=== PATIENT | male | born 1950 | race Caucasian/White ===

== ENCOUNTER → 2018-09-30 | Outpatient (CLI) | payer MEDICARE ==
--- NOTE | 2018-09-30 15:10 | CT ---
EXAMINATION TYPE: CT sinus wo con DATE OF EXAM: 09/30/2018 COMPARISON: None HISTORY: Chronic sinusitis CT DLP: 588 mGycm. Automated Exposure Control for Dose Reduction was Utilized. TECHNIQUE: CT scan of the sinuses is performed without contrast, axial images are obtained, coronal r eformatted images are also reviewed. FINDINGS: The left maxillary sinus is nearly completely opacified, right maxillary sinus also shows e xtensive inflammatory change, abnormal soft tissue extends to the ostiomeatal complexes bilaterally, ethmoid air cells show large amount of opacification as do the sphenoid sinuses, inflammatory change also noted in the bilateral frontal sinuses. The orbits show symmetric appearance. There is a deviate d nasal septum to the left. IMPRESSION: Pansinusitis.
== END | disposition home or self-care (01) ==
LOC: RADCTMAIN 14:31
PROVIDERS: ATTEND Family Medicine
DX: J32.4 Chronic pansinusitis (principal)
CPT/HCPCS: 70486

== ENCOUNTER 2020-04-28 09:50 | Day surgery (SDC) | payer MEDICARE ==
[2020-04-27 08:34] VITALS: BMI 25.7
[~2020-04-28 09:50] MED LIST: LACTATED RINGERS 1,000 ML IV SCH
[2020-04-28] MEDS ORDERED: LIDOCAINE 1% (10MG/ML) FOR IV START INTRADERMA ONE (10:54)
[2020-04-28 10:57] VITALS: TEMP 97.1
[2020-04-28] MEDS ORDERED: LIDOCAINE 1% INJ 10MG/ML (20 ML MDV) ONE (11:17)
[2020-04-28] MEDS ORDERED: PROPOFOL 10 MG/ML 20 ML VIAL IV ONE (11:17)
--- NOTE | 2020-04-28 11:30 | P.PCN ---
Date of Procedure: 04/28/20 Procedure(s) Performed: BRIEF HISTORY: Patient is a 70-year-old, pleasant, white male scheduled for an upper endoscopy as a part of evaluation of long-standing history of GERD and intermittent globus sensation for the last 6 months duration. He has been on Prilosec 20 mg daily for several years.. PROCEDURE PERFORMED: Esophagogastroduodenoscopy with biopsy PREOPERATIVE DIAGNOSIS: . Long-standing history of GERD/globus pharyngeus. IV sedation per anesthesia. PROCEDURE: After informed consent was obtained, the patient was brought into the endoscopy unit. IV sedation was administered by Anesthesia under continuous monitoring. Initially the Olympus GIF-140 video endoscope was inserted into the mouth. Esophagus intubated without any difficulty. It was gradually advanced into the stomach and duodenum and carefully examined. The bulb and the second part of the duodenum appeared normal. The scope at this time was withdrawn to the stomach, adequately insufflated with air, and upon careful examination, mucosa of the antrum, body, cardia and the fundus appeared normal. The scope was then withdrawn into the esophagus. The GE junction was located at 39 cm from the incisors. Small sliding Hiatal hernia noted. There was a short segment of Schwab's esophagus extending 5 mm proximal to the GE junction which was biopsied. The rest of the esophagus appeared normal. There were no erosions or ulcerations seen and the patient tolerated the procedure well. IMPRESSION: 1. 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 2. Small hiatal hernia. RECOMMENDATIONS: The findings of this examination were discussed with the patient as well as his family. He was advised to follow with the biopsy results. He will continue with Prilosec 20 mg daily and follow antireflux measures. If the biopsy confirms the presence of Schwab's esophagus he can have a repeat upper endoscopy in 2-3 years.
[2020-04-28 11:47] VITALS: BP 147/89; PULSE 64; RESP 16
== END 2020-04-28 12:09 | disposition home or self-care (01) ==
LOC: ORWHC2ENDO 09:50
PROVIDERS: ATTEND Internal Medicine Gastroenterology
DX: K21.00 Gastro-esophageal reflux disease with esophagitis, without bleeding (principal); K44.9 Diaphragmatic hernia without obstruction or gangrene; F45.8 Other somatoform disorders; I10 Essential (primary) hypertension; E78.5 Hyperlipidemia, unspecified; Z79.899 Other long term (current) drug therapy; Z79.82 Long term (current) use of aspirin
CPT/HCPCS: 88305; 43239; J2001; J2704

== ENCOUNTER 2022-02-17 14:45 | Emergency (ER) | payer MEDICARE ==
[2022-02-17 14:54] VITALS: RESP 18
[2022-02-17] MEDS ORDERED: ACETAMINOPHEN TAB 500 MG TAB PO STA (15:30)
[2022-02-17] MEDS ORDERED: RX INFO: IV CONTRAST WAS GIVEN 1 EACH MISC MISCELLANE PRN (15:32)
--- NOTE | 2022-02-17 15:39 | CT ---
EXAMINATION TYPE: CT brain julissa garcia con DATE OF EXAM: 02/17/2022 COMPARISON: HISTORY: Thrown from horse CT DLP: 1041.[address] of the brain was performed. The ventricles, basal cisterns and sulci overlying the cerebral convexities demonstrate mild enlargem ent. There is no evidence for intracranial hemorrhage or sulcal effacement. There is decreased attenuatio n about the periventricular white matter and deep white matter of both cerebral hemispheres, compatib le with chronic small vessel ischemia. No mass effects are seen. If symptoms persist consider MRI. Osseous calvarium is intact. IMPRESSION: 1. Age related atrophic and chronic small vessel ischemic change without acute intracranial process seen at this time. CT Cervical Spine: Unenhanced CT of the cervical spine was performed with bone and soft tissue window settings submitted . Coronal and sagittal reconstruction is obtained. There is normal alignment and prevertebral soft tissues. No evidence for acute cervical fracture . Scattered degenerative disc disease and spondylosis. Biapical scarring. There is evidence of a comm inuted left clavicular fracture. Radiographic correlation recommended. IMPRESSION: 1. No evidence for acute fracture or subluxation of the cervical spine. 2. Left clavicular fracture at its middle one third with mild comminution noted.
[2022-02-17 15:56] LABS: Basophils # (A) 0.1 k/uL (0-0.2); Basophils % (A) 1 %; Eosinophils # (A) 0.1 k/uL (0-0.7); Eosinophils % (A) 1 %; HCT 46.4 % (39.0-53.0); HGB 15.9 gm/dL (13.0-17.5); Lymphocytes # (A) 1.2 k/uL (1.0-4.8); Lymphocytes % (A) 6 %; MCH 29.9 pg (25.0-35.0); MCHC 34.3 g/dL (31.0-37.0); MCV 87.1 fL (80.0-100.0); Monocytes # (A) 0.7 k/uL (0-1.0); Monocytes % (A) 4 %; Neutrophils # (A) 16.4 k/uL (1.3-7.7); Neutrophils % (A) 88 %; Platelet Count 255 k/uL (150-450); RBC 5.33 m/uL (4.30-5.90); RDW 12.5 % (11.5-15.5); WBC 18.6 k/uL (3.8-10.6)
[2022-02-17 16:06] LABS: Albumin 4.7 g/dL (3.5-5.0); Calcium 9.5 mg/dL (8.4-10.2); Potassium 4.2 mmol/L (3.5-5.1); Total Bilirubin 1.1 mg/dL (0.2-1.3); Total Protein 7.4 g/dL (6.3-8.2)
--- NOTE | 2022-02-17 17:18 | CT ---
EXAMINATION TYPE: CT chest w con DATE OF EXAM: 02/17/2022 COMPARISON: None HISTORY: trauma, thrown from horse CT DLP: 407.5 mGycm Automated exposure control for dose reduction was used. CONTRAST: Performed with IV Contrast, patient injected with 100 mL of Isovue 300. Images obtained from the thoracic inlet to the diaphragm with the IV contrast. There is mild subsegmental atelectasis at the posterior lung bases. Heart size is normal. No pericard ial effusion. There are no hilar masses. There is no mediastinal adenopathy. Thoracic aorta is intact. No aneurysm or dissection. There are no filling defects in the pulmonary ar teries. No pleural effusion or pneumothorax. The shoulder joints appear intact. There is a comminuted nondisplaced fracture of the midshaft of the left clavicle. No rib fracture seen. Upper abdominal so ft tissues are intact. IMPRESSION: Acute comminuted midshaft fracture left clavicle. Mild subsegmental atelectasis at the lung bases. No pneumothorax.
--- NOTE | 2022-02-17 18:08 | ED ---
Trauma HPI - General Chief Complaint: Trauma Stated Complaint: ribs,collar bone,head injury fell off horse Time Seen by Provider: 02/17/22 15:10 Source: patient - History of Present Illness Initial Comments: 71-year-old male with past medical history of hypertension, hyperlipidemia presents to the ER with left shoulder pain. Patient was thrown off a horse. States that the horse was scared by a car and he was thrown off or distance of 6 feet. He did hit his head. Denies losing consciousness. He was able to get up and ambulatory on his own. Patient also landed on his left shoulder. Reports to left clavicular pain and left-sided chest wall pain. He did not take anything for his symptoms. He denies headaches or visual changes. No nausea or vomiting. Denies any shortness of breath. Denies any abdominal pain. No hip pain, back pain or pain in his lower extremity. No other alleviating, precipitating or modifying factors - Related Data Home Medications Medication Instructions Recorded Confirmed Ascorbic Acid [Vitamin C] 1,000 mg PO DAILY 04/27/20 04/28/20 Aspirin 81 mg PO DAILY 04/27/20 04/28/20 Atorvastatin [Lipitor] 20 mg PO HS 04/27/20 04/28/20 Cholecalciferol [Vitamin D3] 400 unit PO DAILY 04/27/20 04/28/20 Omeprazole [PriLOSEC] 20 mg PO HS 04/27/20 04/28/20 diphenhydrAMINE [Benadryl] 25 mg PO HS PRN 04/27/20 04/28/20 Previous Rx's Medication Instructions Recorded HYDROcodone/APAP 10-325MG [Dryden 1 tab PO Q4HR PRN #18 tab 02/17/22 10-325] Allergies Allergy/AdvReac Type Severity Reaction Status Date / Time No Known Allergies Allergy Verified 02/17/22 14:54 Review of Systems ROS Statement: Those systems with pertinent positive or pertinent negative responses have been documented in the HPI. ROS Other: All systems not noted in ROS Statement are negative. Past Medical History Past Medical History: Hyperlipidemia, Hypertension Additional Past Medical History / Comment(s): Hx. of HTN History of Any Multi-Drug Resistant Organisms: None Reported Past Surgical History: Appendectomy, Orthopedic Surgery Additional Past Surgical History / Comment(s): Colonoscopy, surgery on R Achilles. Past Anesthesia/Blood Transfusion Reactions: No Reported Reaction Past Psychological History: No Psychological Hx Reported Smoking Status: Never smoker - Past Family History Mother Family Medical History: Cancer Additional Family Medical History / Comment(s): Colon General Exam General appearance: alert, in no apparent distress Head exam: Present: atraumatic, normocephalic, normal inspection Eye exam: Present: normal appearance, PERRL, EOMI. Absent: scleral icterus, conjunctival injection, periorbital swelling ENT exam: Present: normal exam, mucous membranes moist Neck exam: Present: normal inspection, other (C-collar in place). Absent: tenderness, meningismus, lymphadenopathy Respiratory exam: Present: normal lung sounds bilaterally, chest wall tenderness (Obvious deformity left mid clavicle with overlying hematoma. No skin tenting. Equal electrical appliance preparer strength.). Absent: respiratory distress, wheezes, rales, rhonchi, stridor Cardiovascular Exam: Present: regular rate, normal rhythm, normal heart sounds. Absent: systolic murmur, diastolic murmur, rubs, gallop, clicks GI/Abdominal exam: Present: soft, normal bowel sounds. Absent: distended, tenderness, guarding, rebound, rigid Extremities exam: Present: normal inspection, full ROM, normal capillary refill. Absent: tenderness, pedal edema, joint swelling, calf tenderness Back exam: Present: normal inspection Neurological exam: Present: alert, oriented X3, CN II-XII intact Psychiatric exam: Present: normal affect, normal mood Skin exam: Present: warm, dry, intact, normal color. Absent: rash Course Vital Signs 02/17/22 02/17/22 02/17/22 14:50 16:39 18:24 Temperature 97.9 F 98.7 F Pulse Rate 76 70 Respiratory 18 18 18 Rate Blood Pressure 160/90 157/91 Blood Pressure 145/84 [Right Arm] O2 Sat by Pulse 98 100 97 Oximetry Medical Decision Making - Medical Decision Making Upon arrival patient was placed in a trauma 1. Thorough history and physical exam was performed. He is offered medications for pain control. He is agreeable to Tylenol initiation. IV is established and laboratory studies are conducted. Patient is sent for a CT of his head and cervical spine as well as a CT of his chest. CT of his head and cervical spine demonstrates age-related chronic small vessel ischemic change without acute process. CT the neck demonstrates no evidence for acute fracture subluxation of the cervical spine. Left clavicular fracture. CT is performed. No signs of rib fracture. Acute comminuted midshaft fracture of the left clavicle. Called and spoke with Dr. Caicedo. Patient will be placed in a splint. Dryden will be prescribed for pain con trol. Patient will be discharged home and is instructed to call the orthopedic office for follow-up. Return for any new or worsening symptoms. Patient was agreeable and discharged home in stable condition - Lab Data Result diagrams: 02/17/22 15:46 02/17/22 15:46 Lab Results 02/17/22 02/17/22 Range/Units 15:46 15:46 WBC 18.6 H (3.8-10.6) k/uL RBC 5.33 (4.30-5.90) m/uL Hgb 15.9 (13.0-17.5) gm/dL Hct 46.4 (39.0-53.0) % MCV 87.1 (80.0-100.0) fL MCH 29.9 (25.0-35.0) pg MCHC 34.3 (31.0-37.0) g/dL RDW 12.5 (11.5-15.5) % Plt Count 255 (150-450) k/uL MPV 8.0 Neutrophils % 88 % Lymphocytes % 6 % Monocytes % 4 % Eosinophils % 1 % Basophils % 1 % Neutrophils # 16.4 H (1.3-7.7) k/uL Lymphocytes # 1.2 (1.0-4.8) k/uL Monocytes # 0.7 (0-1.0) k/uL Eosinophils # 0.1 (0-0.7) k/uL Basophils # 0.1 (0-0.2) k/uL Sodium 138 (137-145) mmol/L Potassium 4.2 (3.5-5.1) mmol/L Chloride 102 (98-107) mmol/L Carbon Dioxide 22 (22-30) mmol/L Anion Gap 14 mmol/L BUN 18 (9-20) mg/dL Creatinine 1.10 (0.66-1.25) mg/dL Est GFR (CKD-EPI)AfAm 77 (>60 ml/min/1.73 sqM) Est GFR (CKD-EPI)NonAf 66 (>60 ml/min/1.73 sqM) Glucose 105 H (74-99) mg/dL Calcium 9.5 (8.4-10.2) mg/dL Total Bilirubin 1.1 (0.2-1.3) mg/dL AST 34 (17-59) U/L ALT 42 (4-49) U/L Alkaline Phosphatase 114 (38-126) U/L Total Protein 7.4 (6.3-8.2) g/dL Albumin 4.7 (3.5-5.0) g/dL Disposition Clinical Impression: Fall from horse, Fracture, clavicle closed, shaft, Chest wall pain Disposition: HOME SELF-CARE Condition: Stable Instructions (If sedation given, give patient instructions): Clavicle Fracture (ED) Additional Instructions: Take the Dryden alternating with Motrin 600 mg (3 tablets) every 4 hours. Do not take any extra Tylenol as the Dryden contains Tylenol. If you choose not to take the Dryden, you may take regular Tylenol. Wear the sling. Ice and elevate the extremity. Call on Sunday to make an appointment with the orthopedic office. Return for any new or worsening symptoms Prescriptions: HYDROcodone/APAP 10-325MG [Dryden 10-325] 1 tab PO Q4HR PRN #18 tab PRN Reason: pain Is patient prescribed a controlled substance at d/c from ED?: Yes When asked, does pt state using other controlled substances?: No If prescribed controlled substance>3 days was MAPS reviewed?: Prescribed <3 Days If opioid is for acute pain is fill amount 7 days or less?: Yes If Rx opioid, was Start Talking consent form obtained?: Yes Referrals: Vidal Gutiérrez MD [Primary Care Provider] - 1-2 days Jaqueline Caicedo DO [Doctor of Osteopathic Medicine] - 1-2 days Time of Disposition: 18:09
[2022-02-17 18:26] VITALS: BP 157/91; PULSE 70; TEMP 98.7
== END 2022-02-17 18:26 | disposition home or self-care (01) ==
LOC: EC 14:45
DX: S42.022A Displaced fracture of shaft of left clavicle, initial encounter for closed fracture (principal); R07.89 Other chest pain; E78.5 Hyperlipidemia, unspecified; I10 Essential (primary) hypertension; Z79.82 Long term (current) use of aspirin; Z79.899 Other long term (current) drug therapy; V80.010A Animal-rider injured by fall from or being thrown from horse in noncollision accident, initial encounter
CPT/HCPCS: 36415; 80053; 85025; 72125; 70450; 71260; 99285; Q9967

== ENCOUNTER 2024-04-25 09:51 | Day surgery (SDC) | payer MEDICARE ==
[2024-04-22 13:07] VITALS: BMI 25.7
[2024-04-25 11:08] VITALS: TEMP 97.9
[2024-04-25] MEDS: IV FLUID CONTINUATION 1,000 ML IV ONE (11:09)
[2024-04-25] MEDS ORDERED: PROPOFOL 10 MG/ML 20 ML VIAL IV ONE (11:44)
[2024-04-25] MEDS ORDERED: LIDOCAINE 1% INJ 10MG/ML (20 ML MDV) ONE (11:44)
--- NOTE | 2024-04-25 11:54 | P.PCN ---
Date of Procedure: 04/25/24 Procedure(s) Performed: BRIEF HISTORY: Patient is a 74-year-old, pleasant, white male scheduled for an upper endoscopy as a part evaluation of lungs and history of GERD and Schwab's esophagus. PROCEDURE PERFORMED: Esophagogastroduodenoscopy with biopsy. PREOPERATIVE DIAGNOSIS: Longstanding history GERD and Schwab's esophagus. IV sedation per anesthesia. PROCEDURE: After informed consent was obtained, the patient was brought into the endoscopy unit. IV sedation was administered by Anesthesia under continuous monitoring. Initially the Olympus GIF-140 video endoscope was inserted into the mouth. Esophagus intubated without any difficulty. It was gradually advanced into the stomach and duodenum and carefully examined. The bulb and the second part of the duodenum appeared normal. The scope at this time was withdrawn to the stomach, adequately insufflated with air, and upon careful examination, mucosa of the antrum, body, cardia and the fundus appeared normal. The scope was then withdrawn into the esophagus. Hiatal hernia noted. The GE junction was located at 39 cm from the incisors. It was a short segment of Schwab's esophagus extending 3 to 4 mm proximal to the GE junction which was biopsied. The rest of the esophagus appeared normal. There were no erosions or ulcerations seen and the patient tolerated the procedure well. IMPRESSION: 1. Short segment Schwab's esophagus s/p biopsy. 2. Small sliding-type hiatal hernia. RECOMMENDATIONS: The findings of this examination were discussed with the patient as well as his family.. Advised to follow with the biopsy results. If the biopsy confirms the presence of Schwab's esophagus he can have repeat upper endoscopy in 3 years. In the meantime he will continue with his current medications and follow antireflux measures.
[2024-04-25 12:19] VITALS: BP 159/83; PULSE 53; RESP 16
== END 2024-04-25 12:40 | disposition home or self-care (01) ==
LOC: ORWHC2ENDO 09:51
PROVIDERS: ATTEND Internal Medicine Gastroenterology
DX: K22.70 Barrett's esophagus without dysplasia (principal); K21.00 Gastro-esophageal reflux disease with esophagitis, without bleeding; K44.9 Diaphragmatic hernia without obstruction or gangrene; I10 Essential (primary) hypertension; E78.5 Hyperlipidemia, unspecified; Z89.439 Acquired absence of unspecified foot; Z98.890 Other specified postprocedural states; Z90.89 Acquired absence of other organs; Z87.19 Personal history of other diseases of the digestive system; Z79.02 Long term (current) use of antithrombotics/antiplatelets; Z79.82 Long term (current) use of aspirin; Z79.899 Other long term (current) drug therapy
CPT/HCPCS: 88305; 43239; J2003; J2704

== ENCOUNTER → 2024-11-14 | Outpatient (CLI) | payer MEDICARE ==
--- NOTE | 2024-11-14 10:11 | MR ---
EXAMINATION TYPE: MR Prostate wo/w con DATE OF EXAM: 11/14/2024 6:40 AM COMPARISON: None. CLINICAL INDICATION: Male, 74 years old with history of R97.20 ELEVATED PROSTATE SPECIFIC ANTIGEN [PS A]; Elevated PSA. TECHNIQUE: Multi-planar, multi-sequence imaging of the pelvis is performed prior to and following the uncomplicated administration of bolus intravenous gadolinium. IV Contrast: 8 mL Gadobutrol Interpretive Criteria: PI-RADS v2.1 SERUM PSA: 04/2024=6.010 09/2024=5.1 SURGICAL PATHOLOGY: No data available. FINDINGS: Prostatic dimensions: 5.9 x 5.8 x 4.7 cm. Ellipsoid Volume:84.21 (PSA density=0.06 ng/mL/m) CENTRAL GLAND (Central and Transition Zones/CZ+TZ): Multiple bilateral, heterogenous appearing hypertrophic stromal nodules, without suspicious lesion. (PI-RADS 2) PERIPHERAL ZONE (PZ): Bilateral linear, indistinct wedgelike areas of low ADC, and low T2 signal, No evidence of masslike a bnormality, or localized perfusional hypervascularity, to further suggest a focus of clinically signi ficant prostate cancer. (PI-RADS 2) SEMINAL VESICLES (SV): Symmetric and unremarkable. PERIPROSTATIC TISSUES: Unremarkable. LYMPH NODES: No enlarged pelvic lymph node. REMAINING PELVIS: Bladder wall is within normal limits given distention. No abnormal free or organized intrapelvic fluid collection. No pathologic bowel dilation or mural thickening. Bilateral fat containing inguinal hernias. OSSEOUS STRUCTURES: No suspicious osseous abnormality. IMPRESSION: 1. No specific features for high-risk prostate cancer. Maximum PI-RADS score: 2. 2. Substantial BPH, estimated gland volume 84.21 (PSA density=0.06 ng/mL/m) 3. No suspicious osseous lesion. No lymphadenopathy. No evidence of prostate adenocarcinoma involving the periprostatic tissues. [facility], , 11/14/2024 10:08 AM
== END | disposition home or self-care (01) ==
LOC: RADMRIMAIN 05:49
PROVIDERS: ATTEND Urology
DX: N40.0 Benign prostatic hyperplasia without lower urinary tract symptoms (principal); R97.20 Elevated prostate specific antigen [PSA]
CPT/HCPCS: 72197; A9585